=== PATIENT | male | born 1950 | race Caucasian/White ===

== ENCOUNTER 2017-06-22 08:46 | Outpatient (CLI) | payer MEDICARE, OTHER ==
[2017-06-22 11:23] LABS: CHOL/HDL RATIO 2.4 (<5.0); CHOLESTEROL 138 mg/dL; HDL CHOLESTEROL 57 mg/dL; LDL CHOLESTEROL,CALCULATED 57 mg/dL; VLDL CHOLESTEROL 24 mg/dL
== END 2017-06-22 08:47 | disposition home or self-care (01) ==
LOC: LAB.F 08:46
PROVIDERS: ATTEND Internal Medicine
DX: E78.5 Hyperlipidemia, unspecified (principal)
CPT/HCPCS: 36415; 80061; 83721

== ENCOUNTER 2021-01-21 21:08 | Inpatient (IN) | payer MEDICARE, OTHER ==
[2021-01-21] MEDS ORDERED: diltiaZEM INJ 5 MG/ML VIAL IVP STA ×2 (21:42→22:48)
--- NOTE | 2021-01-21 21:42 | ED Physician Documentation ---
History of Present Illness - Stated complaint Stated Complaint: HIGH HR - Chief complaint Chief Complaint: Cardiac - History obtained from History obtained from: Patient - History of Present Illness Timing: Enter time (20:00), Today Pain level max: 0 Pain level now: 0 Quality: rapid, irregular Improved by: no ameliorating factors Worsened by: no exacerbating factors - Additonal information Additional information: c/o sudden onset rapid, irregular palpitations at 8 PM while at home at rest. 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 He has never been diagnosed with atrial fibrillation. Denies chest pain, denies dyspnea. Review of Systems Constitutional: reports: Reviewed and negative Eyes: reports: Reviewed and negative Ears: reports: Reviewed and negative Nose: reports: Reviewed and negative Throat: reports: Reviewed and negative Cardiac: reports: Palpitations. denies: Chest pain / pressure, Pedal edema, Calf pain Respiratory: reports: Reviewed and negative GI: reports: Reviewed and negative Skin: reports: Reviewed and negative Musculoskeletal: reports: Reviewed and negative Neurologic: denies: Generalized weakness PD PAST MEDICAL HISTORY - Past Medical History Past Medical History: Yes Cardiovascular: High cholesterol Endocrine/Autoimmune: None GI: None : None HEENT: None Psych: None Musculoskeletal: None Derm: None - Past Surgical History Past Surgical History: Yes - Present Medications Home Medications: Ambulatory Orders Medication Instructions Recorded Confirmed No Known Home Medications 02/18/15 02/18/15 - Allergies Allergies/Adverse Reactions: Allergies Allergy/AdvReac Type Severity Reaction Status Date / Time No Known Drug Allergies Allergy Verified 01/21/21 21:11 - Social History Does the pt smoke?: No Smoking Status: Never smoker Does the pt drink ETOH?: Yes Does the pt have substance abuse?: No - Immunizations Immunizations are current?: Yes - POLST Patient has POLST: Yes PD ED PE NORMAL - Vitals Vital signs reviewed: Yes - General General: Alert and oriented X 3, No acute distress, Well developed/nourished - HEENT HEENT: Moist mucous membranes - Neck Neck: Supple, no meningeal sign - Respiratory Respiratory: No respiratory distress, Clear bilaterally - Abdomen Abdomen: Soft, Non tender - Derm Derm: Normal color, Warm and dry - Extremities Extremities: No edema PD ED PE EXPANDED - Cardiac Cardiac: Tachy, Irregularly irregular Results - Vitals Vitals: Vital Signs - 24 hr 01/21/21 01/21/21 01/21/21 21:11 21:34 21:54 Temperature 36.5 C Heart Rate 130 H 153 H 162 H Respiratory 20 18 18 Rate Blood Pressure 113/84 H 116/90 H 121/72 O2 Saturation 96 96 94 01/21/21 01/21/21 01/21/21 22:00 22:05 22:10 Temperature Heart Rate 154 H Respiratory Rate Blood Pressure 107/66 111/73 108/71 O2 Saturation 01/21/21 01/21/21 01/21/21 22:15 22:30 22:36 Temperature Heart Rate 113 H 120 H Respiratory 103 H 19 16 Rate Blood Pressure 105/82 H 114/84 H 114/84 H O2 Saturation 94 94 01/21/21 01/21/21 01/21/21 22:55 23:00 23:05 Temperature Heart Rate 121 H 108 H 113 H Respiratory 15 15 14 Rate Blood Pressure 125/95 H 142/99 H 104/77 O2 Saturation 96 95 95 01/21/21 01/21/21 01/21/21 23:13 23:21 23:23 Temperature Heart Rate 103 H 119 H 115 H Respiratory 21 16 16 Rate Blood Pressure 137/99 H 128/91 H 100/74 O2 Saturation 95 95 95 01/21/21 01/21/21 01/21/21 23:30 23:44 23:51 Temperature Heart Rate 132 H 133 H 115 H Respiratory 16 15 12 Rate Blood Pressure 98/75 98/61 98/59 L O2 Saturation 92 95 98 01/22/21 01/22/21 00:00 00:18 Temperature Heart Rate 133 H 126 H Respiratory 15 15 Rate Blood Pressure 101/79 116/76 O2 Saturation 95 96 Oxygen O2 Source [With Activity] Room air O2 Source Room air - EKG (time done) No standard instances Rate: Rate (enter#) (129) Rhythm: Atrial fibrillation [place]: Normal QRS: Normal Ischemia: Normal ST segments - Labs Labs: Laboratory Tests 01/21/21 01/21/21 01/21/21 10:35 10:35 10:35 WBC 7.8 RBC 5.56 Hgb 16.1 Hct 48.0 MCV 86.3 MCH 29.0 MCHC 33.5 RDW 14.1 Plt Count 237 MPV 9.7 Neut # (Auto) 5.3 Lymph # (Auto) 1.3 L Tucker # (Auto) 0.8 Eos # (Auto) 0.2 Baso # (Auto) 0.1 Absolute Nucleated RBC 0.00 Nucleated RBC % 0.0 Sodium 137 Potassium 3.4 L Chloride 98 L Carbon Dioxide 27 Anion Gap 12.0 BUN 27 H Creatinine 1.0 Estimated GFR (MDRD) 73 L Glucose 86 Calcium 9.5 Total Bilirubin 0.7 AST 28 ALT 29 Alkaline Phosphatase 76 Troponin I High Sens 4.0 Total Protein 7.5 Albumin 4.4 Globulin 3.1 Albumin/Globulin Ratio 1.4 Lipase 32 - Rads (name of study) chest xray Radiology: Prelim report reviewed, See rad report Procedures - Procedural sedation Sedation prep: Informed consent, Time out completed, Last meal (18:30), PE performed, ASA 1 - healthy Sedation Medications: propofol Mallampati classification: I Patient status during sedation: Responds to verbal, Vitals remained stable, Maintained airway, Recovered uneventfully Sedation recovery: Recovered uneventfully, Back to baseline Time in sedation (Minutes): 20 - Cardioversion 1 Indication: Tachyarrhythmia Risks, benefits, alternatives explained to: Pt Prep: IV, O2, monitoring manager, Pulse ox, Airway equip Meds: Morphine CS via: Pads, Anterolateral Sync: Biphasic, 100j Post cardioversion rhythm: Other (initially NSR on monitor, reverted back to JASMEET after approximately 20-30 seconds) Performed by: ED MD 2 Indication: Tachyarrhythmia CS via: Pads, Anterolateral Sync: Biphasic, 200j Post cardioversion rhythm: Other (initially NSR on monitor, reverted back to JASMEET within 10-15 seconds) Performed by: ED PD MEDICAL DECISION MAKING - ED course Complexity details: reviewed results, re-evaluated patient, considered d ifferential, d/w patient ED course: presents with new-onset JASMEET. Given two doses of IV cardizem (20 mg , 15 mg). Rate improved to upper 90s/100s with these doses but he remained in atrial fibrillation, with gradually increasing rate as the doses wore off. We discussed further options and he is agreeable to electrocardioversion. As documented above, two attempts resulted in brief periods of NSR that rapidly reverted to atrial fibrillation. I discussed the case with Dr. Garcia (behavioral intervention specialist cardiology for [facility]). He recommends IV cardizem drip to be titrated to rate control (or else beta jay), anticoagulation with warfarin or else NOAC, and admission, with goal of rate control and conversion to PO rate-controlling medication, continuation of oral anticoagulant. Patient agreeable to this plan. D/W Dr. Naidu, accepts to hospitalist service. Departure - Departure Disposition: [facility] DC/Xfer Clinical Impression: Rapid atrial fibrillation Condition: Stable Discharge Date/Time: 01/22/21 01:41
--- NOTE | 2021-01-21 22:15 | XRAY Report ---
PROCEDURE: Chest 1 View X-Ray INDICATIONS: Chest pain COMMENTS: pt c/o heart racing, hx new onset AFIB, no chest pain, no SOA PRIORS: none TECHNIQUE: One view of the chest was acquired. COMPARISON: None FINDINGS: Surgical changes and devices: None. Lungs and pleura: No pleural effusions or pneumothorax. Lungs are clear. Mediastinum: Mediastinal contours appear normal. Heart size is normal. Bones and chest wall: No suspicious bony lesions. Overlying soft tissues appear unremarkable. IMPRESSION: No acute cardiopulmonary abnormality. Reviewed by: Osman Hinojosa on 01/21/2021 10:13 PM [facility] Approved by: Osman Hinojosa on 01/21/2021 10:13 PM [facility] Station ID: [id number]
[2021-01-21 22:41] LABS: BASOPHILS # (AUTO) 0.1 10^3/uL (0.0-0.1); BASOPHILS % (AUTO) 0.9 %; EOSINOPHILS # (AUTO) 0.2 10^3/uL (0.0-0.7); EOSINOPHILS % (AUTO) 2.7 %; HGB - HEMOGLOBIN 16.1 g/dL (14.0-18.0); LYMPHOCYTES # (AUTO) 1.3 10^3/uL (1.5-3.5); LYMPHOCYTES % (AUTO) 17.3 %; MEAN CORPUSCULAR HGB CONC 33.5 g/dL (32.0-36.0); MEAN CORPUSCULAR VOLUME 86.3 fL (80.0-94.0); MEAN PLATELET VOLUME 9.7 fL (7.4-11.4); MONOCYTES # (AUTO) 0.8 10^3/uL (0.0-1.0); MONOCYTES % (AUTO) 10.3 %; NEUTROPHILS # (AUTO) 5.3 10^3/uL (1.5-6.6); NEUTROPHILS % (AUTO) 68.4 %; PLT - PLATELET COUNT 237 10^3/uL (130-450); RED BLOOD COUNT 5.56 10^6/uL (4.70-6.10); RED CELL DISTRIBUTION WIDTH 14.1 % (12.0-15.0); WHITE BLOOD COUNT 7.8 x10^3/uL (4.8-10.8)
[2021-01-21 23:02] LABS: ALBUMIN 4.4 g/dL (3.2-5.5); ALBUMIN/GLOBULIN RATIO 1.4 (1.0-2.2); BILIRUBIN,TOTAL 0.7 mg/dL (0.2-1.0); CALCIUM 9.5 mg/dL (8.5-10.3); POTASSIUM 3.4 mmol/L (3.5-5.0); TOTAL PROTEIN 7.5 g/dL (6.7-8.2)
[2021-01-21] MEDS ORDERED: MORPHINE 2 MG/ML CARPUJECT IVP STA (23:31)
[2021-01-21] MEDS ORDERED: PROPOFOL 200 MG/20 ML VIAL IVP STA (23:31)
[2021-01-21] MEDS ORDERED: SODIUM CHLORIDE 0.9% 1,000 ML IV STA (23:40)
[2021-01-22] MEDS ORDERED: diltiaZEM INJ 125 MG in DEXTROSE 5% 100 ML IV STA (00:25)
[2021-01-22] MEDS ORDERED: POTASSIUM CHLORIDE 20 MEQ TABLET PO STA (00:26)
[2021-01-22] MEDS ORDERED: APIXABAN 5 MG TABLET PO STA (00:31)
[2021-01-22] MEDS ORDERED: diltiaZEM INJ 5 MG/ML VIAL ONE (00:38)
[2021-01-22] MEDS ORDERED: ONDANSETRON 4 MG/2 ML VIAL IVP PRN (00:44)
[2021-01-22] MEDS ORDERED: ACETAMINOPHEN 325 MG TABLET PO PRN (00:44)
[2021-01-22] MEDS ORDERED: SODIUM CHLORIDE FLUSH 0.9% 10 ML SYRINGE IVP PRN (00:44)
--- NOTE | 2021-01-22 00:56 | HISTORY & PHYSICAL EXAMINATION ---
Chief Complaint - Chief Complaint Chief Complaint: irregular heart rhythm History of Present Illness - Admitted From Admitted From:: [facility] ED - History Obtained From Records Reviewed: yes History obtained from: patient - History of Present Illness HPI Comment/Other: Patient is 70-year-old male with medical history significant for hyperlipidemia, CVA with no residual deficits, history of prostate cancer status post radical prostatectomy who presented to the ED with complaint of an irregular and fast heart rate. This happened around 8 PM today while he was watching TV. He felt a bit dizzy when he stood up. He noted that his heart rate was in the 150s at home. He denied chest pain, dyspnea, abdominal pain, nausea, vomiting, fever or chills. He has history of ventricular ectopy for which he underwent extensive work-up 45 years ago. This included a stress echo and a cardiac MRI which were all unremarkable. He reports feeling an episode of arrhythmia about a month or 2 ago which resolved shortly after starting. In the emergency room he was noted to be in atrial fibrillation with rapid ventricular rhythm. Heart rate as high as 150s. He was given 2 doses of diltiazem which slowed down his heart rate but then he went back to rapid ventricular rhythm shortly after. Cardioversion was attempted twice. Each time he was successfully converted to sinus rhythm but then went back into A. fib with RVR. As a result he was presented for admission for further management. History - Past Medical History Cardiovascular: reports: High cholesterol Neuro: reports: CVA (no residual deficit) Endocrine/Autoimmune: reports: None GI: reports: None : reports: Other (Prostate cancer s/p radical prostatectomy) HEENT: reports: None Psych: reports: None Musculoskeletal: reports: None Derm: reports: None MRSA Hx?: No - Past Surgical History Ortho: reports: Knee replacement (right. 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 He is independent of activities of daily living. 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 He drinks 1 glass of wine nightly. He does not use any recreational substances. - POLST Patient has POLST: Yes POLST Status: Full Code Meds/Allgy - Home Medications Home Medications: Ambulatory Orders Medication Instructions Recorded Confirmed No Known Home Medications 02/18/15 02/18/15 - Allergies Allergies/Adverse Reactions: Allergies Allergy/AdvReac Type Severity Reaction Status Date / Time No Known Drug Allergies Allergy Verified 01/21/21 21:11 Review of Systems - Constitutional Constitutional: denies: Fatigue, Fever, Chills, Weakness - Eyes Eyes: denies: Pain - Ears, Nose & Throat Ears, Nose & Throat: denies: Ear pain, Sore throat - Cardiovascular Cariovascular: reports: Irregular heart rate, Lightheadedness. denies: Chest pain, Edema - Respiratory Respiratory: denies: Cough, Wheezing, SOB at rest, SOB with exertion - Gastrointestinal Gastrointestinal: denies: Abdominal pain, Abdominal distention, Nausea, Vomiting - Genitourinary Genitourinary: denies: Dysuria, Frequency, Hematuria - Musculoskeletal Musculoskeletal: denies: Muscle pain, Back pain, Muscle aches - Integumentary Integumentary: denies: Rash, Pruritis - Neurological Neurological: denies: General weakness, Focal weakness - Psychiatric Psychiatric: denies: Depression, Anxiety - Endocrine Endocrine: denies: Polyuria, Polydypsia - Hematologic/Lymphatic Hematologic/Lymphatic: denies: Anemia, Bruising Prior Level of Functionality: He is independent of activities of daily living. Exam - Vital Signs Vital Signs: Vital Signs x48h Temp Pulse Resp BP Pulse Ox 01/22/21 00:46 132 H 18 125/108 H 96 01/22/21 00:18 126 H 15 116/76 96 01/22/21 00:00 133 H 15 101/79 95 01/21/21 23:51 115 H 12 98/59 L 98 01/21/21 23:44 133 H 15 98/61 95 01/21/21 23:30 132 H 16 98/75 92 01/21/21 23:23 115 H 16 100/74 95 01/21/21 23:21 119 H 16 128/91 H 95 01/21/21 23:13 103 H 21 137/99 H 95 01/21/21 23:05 113 H 14 104/77 95 01/21/21 23:00 108 H 15 142/99 H 95 01/21/21 22:55 121 H 15 125/95 H 96 01/21/21 22:36 120 H 16 114/84 H 94 01/21/21 22:30 113 H 19 114/84 H 94 01/21/21 22:15 103 H 105/82 H 01/21/21 22:10 108/71 01/21/21 22:05 111/73 01/21/21 22:00 154 H 107/66 01/21/21 21:54 162 H 18 121/72 94 01/21/21 21:34 153 H 18 116/90 H 96 01/21/21 21:11 36.5 C 130 H 20 113/84 H 96 - Physical Exam General Appearance: positive: No acute distress, Alert Eyes Bilateral: positive: PERRL, EOMI ENT: positive: No signs of dehydration Neck: positive: No JVD, Trachea midline Respiratory: positive: Chest non-tender, No respiratory distress, Breath sounds nml. negative: Wheezes, Rales, Rhonchi Cardiovascular: positive: No murmur, Irregularly irregular, Tachycardia Abdomen: positive: Non-tender, No organomegaly, Nml bowel sounds, No distention. negative: Guarding, Rebound Skin: positive: Color nml, No rash, Warm, Dry Extremities: positive: Non-tender, Full ROM, Nml appearance, No pedal edema Neurologic/Psychiatric: positive: Oriented x3, Mood/affect nml Conclusion/Plan - Problem List (1) Atrial fibrillation with RVR Conclusion/Plan: New onset. Etiology undetermined. Initial troponin was 4.0. Will trend X2 more Patient received 2 doses of diltiazem without success 2 attempt of cardioversion resulted in conversion to sinus rhythm which did not last long Diltiazem drip initiated. Will titrate to effect Patient was started on Eliquis 5mg po bid after discussion with Dr Garcia (methods analyst data processing) at [facility] by Dr Etienne Metoprolol succinate 50mg po daily ordered. 2D echo ordered for the morning. (2) Hyperlipidemia Conclusion/Plan: Will resume patient's atorvastatin once verified - Lab Results Fish Bones: 01/21/21 10:35 01/21/21 10:35 Core Measures - Anticipated LOS I expect patient to be DC'd or transferred within 96 hours.: Yes - DVT/VTE - Prophylaxis VTE/DVT Device ordered at admit?: No VTE/DVT Prophylaxis med ordered at admit?: Yes
[2021-01-22] MEDS ORDERED: diltiaZEM INJ 125 MG in DEXTROSE 5% 100 ML IV SCH (01:00)
[2021-01-22] MEDS: SODIUM CHLORIDE FLUSH 0.9% 10 ML SYRINGE IVP SCH ×2 (01:53→12:09)
[2021-01-22 02:05] LABS: B. PARAPERTUSSIS- RESP PCR PAN NOT DETECTED; B. PERTUSSIS- RESP PCR PANEL NOT DETECTED; C. PNEUMONIAE- RESP PCR PANEL NOT DETECTED; CORONAVIRUS 229E-RESP PCR NOT DETECTED; CORONAVIRUS HKU1-RESP PCR NOT DETECTED; CORONAVIRUS NL63-RESP PCR NOT DETECTED; CORONAVIRUS OC43-RESP PCR NOT DETECTED; HUMAN METAPNEUMOVIRUS NOT DETECTED; INFLUENZA A- RESP PCR PANEL NOT DETECTED; INFLUENZA B - RESP PCR PANEL NOT DETECTED; M. PNEUMONIAE- RESP PCR PANEL NOT DETECTED; PARAINFLUENZA VIRUS 1 NOT DETECTED; PARAINFLUENZA VIRUS 2 NOT DETECTED; PARAINFLUENZA VIRUS 3 NOT DETECTED; PARAINFLUENZA VIRUS 4 NOT DETECTED; RHINOVIRUS/ENTEROVIRUS NOT DETECTED; RSV- RESP PCR PANEL NOT DETECTED; SARS-CoV-2 -RESP PCR PANEL NOT DETECTED
[2021-01-22] MEDS ORDERED: METOPROLOL SUCCINATE 50 MG TABLET PO ONE (04:29)
[2021-01-22 05:18] LABS: CALCIUM, IONIZED 1.13 mmol/L (1.15-1.33); VBG PH 7.458 (7.31-7.41)
[2021-01-22 05:22] LABS: BASOPHILS # (AUTO) 0.1 10^3/uL (0.0-0.1); BASOPHILS % (AUTO) 0.8 %; EOSINOPHILS # (AUTO) 0.2 10^3/uL (0.0-0.7); EOSINOPHILS % (AUTO) 2.8 %; HCT - HEMATOCRIT 46.7 % (42.0-52.0); HGB - HEMOGLOBIN 15.7 g/dL (14.0-18.0); LYMPHOCYTES # (AUTO) 1.2 10^3/uL (1.5-3.5); LYMPHOCYTES % (AUTO) 15.3 %; MEAN CORPUSCULAR HGB CONC 33.6 g/dL (32.0-36.0); MEAN CORPUSCULAR VOLUME 86.3 fL (80.0-94.0); MEAN PLATELET VOLUME 9.3 fL (7.4-11.4); MONOCYTES # (AUTO) 0.7 10^3/uL (0.0-1.0); MONOCYTES % (AUTO) 9.5 %; NEUTROPHILS # (AUTO) 5.6 10^3/uL (1.5-6.6); NEUTROPHILS % (AUTO) 71.2 %; PLT - PLATELET COUNT 226 10^3/uL (130-450); RED BLOOD COUNT 5.41 10^6/uL (4.70-6.10); RED CELL DISTRIBUTION WIDTH 14.1 % (12.0-15.0); WHITE BLOOD COUNT 7.8 x10^3/uL (4.8-10.8)
[2021-01-22 05:30] LABS: CALCIUM 8.9 mg/dL (8.5-10.3); CREATININE 0.9 mg/dL (0.6-1.2); MAGNESIUM 2.1 mg/dL (1.7-2.8); PHOSPHORUS 3.4 mg/dL (2.5-4.6); POTASSIUM 3.8 mmol/L (3.5-5.0)
[2021-01-22] MEDS ORDERED: METOPROLOL SUCCINATE 50 MG TABLET PO SCH (09:00)
[2021-01-22] MEDS ORDERED: APIXABAN 5 MG TABLET PO SCH (09:00)
--- NOTE | 2021-01-22 11:34 | Discharge Plan ---
Discharge Plan Problem Reviewed?: Yes Disposition: Home, Self Care Condition: Stable Prescriptions: Apixaban [Eliquis] 5 mg PO BID #60 tablet Amiodarone [Pacerone] 200 mg PO DAILY #30 tablet Diet: Regular Activity Restrictions: Activity as Tolerated Shower Restrictions: No Driving Restrictions: No Health Concerns: You presented to our emergency room with an irregular and fast heart rate. You have shared with us that you have a history of PACs and PVCs which predisposes you to a high risk of atrial fibrillation. You also shared with us that you have a history of a previous stroke about 5 years ago. You required diltiazem IV push without cardioversion. You were then placed on a diltiazem drip after being electrically cardioverted twice. You converted to sinus rhythm. Plan of Treatment: Your TSH is high at 7.94 which indicates you may have subclinical hypothyroidism. You are not having a heart attack. Your cardiac enzymes did rise but we think it was in relation to demand stress caused by the fast heart rate. Troponin #1 was 4.0. Troponin #2 was 21.3. You had a potassium of 3.4 on admission and it was 3.8 at discharge. Echocardiogram was pending at the time of discharge. It had been done but the final report was not available. Care Goals: To remain in sinus rhythm. I have already called your primary care provider, Dr. Barbour, and he knows to see you and to refer you to cardiology for an opinion. You would like to be educated about the need for anticoagulation in the face of infrequent atrial fibrillation. I have sent you home with UpToDate information regarding that. In the meantime, we will be sending you home with Eliquis and amiodarone until y ou see Dr. Barbour and a social work instructor. 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 No Smoking: If you smoke, Please STOP! Call for help. Follow-up with: Jeremiah Barbour MD [Physician No Access] -
--- NOTE | 2021-01-22 11:44 | PHARMACY PROGRESS NOTE ---
- Best Possible Medication History Admit Date and Time: 01/22/21 0044 Processed by: Pharmacy Medication History completed: Yes Patient Interview: Completed Secondary Source(s): Insurance records As the person ultimately responsible for medication therapy, providers are able to order a medication from an existing home medication list in [facility] via the "Reconcile Routine" prior to Confirmation of that medication by residential direct support professional. Such practice is discouraged except when the physician, in their clinical judgment, deems that a medical need exists for a medication without regard to previous use.
[2021-01-22 12:14] VITALS: BP 103/66
[2021-01-22] MEDS ORDERED: AMIODARONE 200 MG TABLET PO SCH (13:00)
--- NOTE | 2021-01-22 14:08 | DISCHARGE SUMMARY ---
"Discharge Summary Admit Date: 01/21/21 Discharge Date: 01/22/21 Discharging Provider: Adry Campo MD Primary Care Provider: Jeremiah Barbour MD Code Status: Attempt Resuscitation Condition at Discharge: Stable Discharge Disposition: 01 Home, Self Care - DIAGNOSES Discharge Diagnoses with Status of Each Condition: 1. Paroxysmal atrial fibrillation 2. History of PVCs/PACs 3. History of stroke - HPI History of Present Illness: Patient is 70-year-old male with medical history significant for hyperlipidemia, CVA with no residual deficits, history of prostate cancer status post radical prostatectomy who presented to the ED with complaint of an irregular and fast heart rate. This happened around 8 PM today while he was watching TV. He felt a bit dizzy when he stood up. He noted that his heart rate was in the 150s at home. He denied chest pain, dyspnea, abdominal pain, nausea, vomiting, fever or chills. He has history of ventricular ectopy for which he underwent extensive work-up 45 years ago. This included a stress echo and a cardiac MRI which were all unremarkable. He reports feeling an episode of arrhythmia about a month or 2 ago which resolved shortly after starting. In the emergency room he was noted to be in atrial fibrillation with rapid ventricular rhythm. Heart rate as high as 150s. He was given 2 doses of diltiazem which slowed down his heart rate but then he went back to rapid ventricular rhythm shortly after. Cardioversion was attempted twice. Each time he was successfully converted to sinus rhythm but then went back into A. fib with RVR. As a result he was presented for admission for further management. - Past Medical History Cardiovascular: reports: High cholesterol Neuro: reports: CVA (no residual deficit) Endocrine/Autoimmune: reports: None GI: reports: None : reports: Other (Prostate cancer s/p radical prostatectomy) HEENT: reports: None Psych: reports: None Musculoskeletal: reports: None Derm: reports: None MRSA Hx?: No - Past Surgical History Ortho: reports: Knee replacement (right. 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 Echocardiogram. This is a preliminary finding. Final report must be reviewed. Left ventricular wall thickness normal. 60 to 65% ejection fraction without regional wall motion abnormalities. Right ventricle normal size and function. Moderate right atrial enlargement. Left atrial volume index normal. No valvular heart disease. 2. TSH 7.94. Troponin 4.0>21.3>12.4. 3. Chest x-ray without acute cardiopulmonary abnormality. - HOSPITAL COURSE Hospital Course: The patient converted to sinus rhythm around 4 AM. Troponins were trended and negative. He has subclinical hypothyroidism. He was transitioned to amiodarone and Eliquis. I have given him the chapter on paroxysmal atrial fibrillation in the management from up-to-date. I have already spoken to his primary care provider, Dr. Barbour, so that he can be referred to cardiology. Patient is very interested in discussing the management since he really would like choose to be on anticoagulation. He also is worried about what to do with anticoagul ation management around the time of a planned hip surgery in April 07, 2021. He is discharged in stable condition. Temperature is 36.8. Heart rate is 81. Blood pressure 103/66. Respiration 22. 94% on room air. He is a 5 foot, 10 inch white male. Alert, oriented. No focal deficits. Walking in the room without assist. Lungs are clear. Regular rate and rhythm. Abdomen benign. I did discuss the case with his primary care provider, Dr. Barbour. Dr. Barbour's office will be calling the patient to make a follow-up appointment and for the referral to cardiology. - ALLERGIES Allergies/Adverse Reactions: Allergies Allergy/AdvReac Type Severity Reaction Status Date / Time No Known Drug Allergies Allergy Verified 01/21/21 21:11 - MEDICATIONS Home Medications: Ambulatory Orders Medication Instructions Recorded Confirmed Amiodarone [Pacerone] 200 mg PO DAILY #30 tablet 01/22/21 Apixaban [Eliquis] 5 mg PO BID #60 tablet 01/22/21 Aspirin Chewable [[facility] Singh 81 mg PO DAILY 01/22/21 01/22/21 Aspirin] Atorvastatin Calcium 40 mg PO DAILY 01/22/21 01/22/21 Biotin 1 cap PO DAILY 01/22/21 01/22/21 Niacinamide 1,000 mg PO DAILY 01/22/21 01/22/21 - LABS Result Diagrams: 01/22/21 05:03 01/22/21 05:03"
== END 2021-01-22 14:10 | disposition home or self-care (01) | DRG 310 ==
LOC: ED 21:08 → ICU 01-22 00:44
PROVIDERS: ADMIT Internal Medicine; ATTEND Specialist
DX: I48.91 Unspecified atrial fibrillation (principal); Z20.822 Contact with and (suspected) exposure to COVID-19; Z86.73 Personal history of transient ischemic attack (TIA), and cerebral infarction without residual deficits; E78.5 Hyperlipidemia, unspecified; Z85.46 Personal history of malignant neoplasm of prostate; Z90.79 Acquired absence of other genital organ(s); Z87.891 Personal history of nicotine dependence; E03.8 Other specified hypothyroidism
CPT/HCPCS: 36415; 71045; 80048; 80053; 82330; 83690; 83735; 84100; 84443; 84484; 85025; 87150; 87631; 92960; 93005; 93306; 96361; 96374; 96375; 96376; 99152; 99284; 99285; A9270; 0202U

== ENCOUNTER 2021-04-24 14:56 | Outpatient (CLI) | payer MEDICARE, OTHER ==
[2021-04-24 15:18] LABS: BASOPHILS # (AUTO) 0.1 10^3/uL (0.0-0.1); BASOPHILS % (AUTO) 0.7 %; EOSINOPHILS # (AUTO) 0.2 10^3/uL (0.0-0.7); EOSINOPHILS % (AUTO) 1.9 %; HCT - HEMATOCRIT 31.1 % (42.0-52.0); HGB - HEMOGLOBIN 10.1 g/dL (14.0-18.0); LYMPHOCYTES # (AUTO) 0.9 10^3/uL (1.5-3.5); LYMPHOCYTES % (AUTO) 8.5 %; MEAN CORPUSCULAR HEMOGLOBIN 28.5 pg (27.0-31.0); MEAN CORPUSCULAR HGB CONC 32.5 g/dL (32.0-36.0); MEAN CORPUSCULAR VOLUME 87.9 fL (80.0-94.0); MEAN PLATELET VOLUME 8.7 fL (7.4-11.4); MONOCYTES # (AUTO) 0.9 10^3/uL (0.0-1.0); MONOCYTES % (AUTO) 8.5 %; NEUTROPHILS # (AUTO) 8.2 10^3/uL (1.5-6.6); NEUTROPHILS % (AUTO) 79.9 %; PLT - PLATELET COUNT 431 10^3/uL (130-450); RED BLOOD COUNT 3.54 10^6/uL (4.70-6.10); RED CELL DISTRIBUTION WIDTH 14.1 % (12.0-15.0); WHITE BLOOD COUNT 10.3 x10^3/uL (4.8-10.8)
[2021-04-24] MEDS ORDERED: IOVERSOL 320 100 ML VIAL IVP ONE ×2 (15:57→18:24)
--- NOTE | 2021-04-24 17:06 | CT Report ---
PROCEDURE: LOWER EXTREMITY W - LT INDICATIONS: LEFT HIP HEMATOMA TECHNIQUE: After administration of contrast 3 mm axial sections acquired of the left hip, with coronal and sagit jose alfredo reformats. For radiation dose reduction, the following was used: automated exposure control, ad justment of mA and/or kV according to patient size. CONTRAST: IV CONTRAST: Optiray 320 ml: 100 PO CONTRAST: *NO PO CONTRAST COMPARISON: None. FINDINGS: BONES/JOINT: No acute, displaced fracture or dislocation. A hip arthroplasty is seen in situ without evidence of compromise. The femoral head component is seated within the acetabular component. The sac roiliac joint is patent. No widening of the pubic sepsis. SOFT TISSUES: A periprosthetic hematoma is seen along the posterior lateral aspect (9-59), measuring 9.4 x 14.1 x 10.7 cm. Reticulated soft tissue density in the subcutaneous fat, compatible with edema. Partially imaged sigmoid diverticulosis. IMPRESSION: 1.Large periprosthetic hematomas detailed above. Reviewed by: Steve Jaeger MD on 04/24/2021 5:04 PM PST Approved by: Steve Jaeger MD on 04/24/2021 5:04 PM PST Station ID: [id number]
== END 2021-04-24 14:57 | disposition home or self-care (01) ==
LOC: DI 14:56
PROVIDERS: ATTEND Orthopaedic Surgery
DX: Z47.1 Aftercare following joint replacement surgery (principal); R20.0 Anesthesia of skin
CPT/HCPCS: 36415; 73701; 85025; Q9967

== ENCOUNTER 2021-04-29 15:41 | Outpatient (CLI) | payer MEDICARE, OTHER ==
--- NOTE | 2021-04-30 17:03 | MRI Report ---
PROCEDURE: Lumbar Spine W/O INDICATIONS: NUEROPATHY, SACRAL PLEXUS TECHNIQUE: Noncontrast sagittal T1 spin echo and T2 fast echo, sagittal STIR, axial T1 and T2 fast spin echo thr ough the lumbar spine. In cases with scoliosis, additional coronal T2 fast spin echo may be performe d. COMPARISON: None. FINDINGS: Image quality: Excellent. Alignment and Curvature: There is trace leftward curvature with apex at L4. Bone Marrow: Marrow is of normal overall signal. Minimal reactive endplate changes are present at L 4-5. No acute vertebral body compression fractures. Spinal Cord: Conus medullaris terminates at the L2 level. Visualized cord demonstrates normal signa l and size. Paraspinous Soft Tissues: No paravertebral masses. Discs: Moderate to severe desiccation is present throughout the lumbar spine most severe at L1-L2. L1-L2: Mild disc bulge without spinal stenosis. [id number] bilateral foraminal narrowing wit h facet and ligamentum flavum hypertrophy. L2-L3: Mild disc bulge with minimal canal narrowing. Moderate bilateral foraminal narrowing, left greater than right with facet and ligamentum flavum hypertrophy. Minimal epidural lipomatosis is pres ent. L3-L4: Mild disc bulge with mild to moderate spinal stenosis. Severe bilateral foraminal narrowing with facet and ligamentum flavum hypertrophy as well as minimal epidural lipomatosis. L4-L5: Mild disc bulge without spinal stenosis. Severe right and moderate to severe left foraminal narrowing with slight appearance of nerve root effacement of the exiting right L4 nerve roots. Facet and ligamentum flavum hypertrophy as well as minimal epidural lipomatosis are present. L5-S1: Mild disc bulge without spinal stenosis. Moderate bilateral foraminal narrowing with facet h ypertrophy. IMPRESSION: Multilevel degenerative changes. Multilevel foraminal narrowing most severe at L3-4, L4-5 secondary to facet/ligamentum flavum arthrop athy. Mild to moderate spinal stenosis most notable at L3-4 secondary to disc bulge with contributing effec t of facet/ligamentum flavum arthropathy as well as epidural lipomatosis. Reviewed by: Victoria Kearns MD on 04/30/2021 5:01 PM PDT Approved by: Victoria Kearns MD on 04/30/2021 5:01 PM PDT Station ID: [id number]
== END 2021-04-29 15:42 | disposition home or self-care (01) ==
LOC: DI 15:41
PROVIDERS: ATTEND Orthopaedic Surgery
DX: M47.816 Spondylosis without myelopathy or radiculopathy, lumbar region (principal); M51.36 Other intervertebral disc degeneration, lumbar region; M48.061 Spinal stenosis, lumbar region without neurogenic claudication; M47.817 Spondylosis without myelopathy or radiculopathy, lumbosacral region; E88.2 Lipomatosis, not elsewhere classified

== ENCOUNTER 2022-08-22 09:24 | Day surgery (SDC) | payer MEDICARE, OTHER ==
[2022-08-22] MEDS ORDERED: LACTATED RINGERS 1,000 ML IV ONE ×2 (09:37→11:11)
[2022-08-22] MEDS ORDERED: PROPOFOL 500 MG/50 ML 500 MG/50 ML VIAL ONE (10:12)
--- NOTE | 2022-08-22 10:13 | ANESTHESIA ---
Pre-Anesthesia VS, & Labs - Diagnosis hx colon polyps - Procedure colonoscopy Vital Signs: Temp Pulse Resp BP Pulse Ox O2 Flow Rate 36.5 C 72 14 128/87 H 94 08/22/22 09:30 08/22/22 09:30 08/22/22 09:30 08/22/22 09:30 08/22/22 09:30 Height: 5 ft 10 in Weight (kg): 94.8 kg Body Mass Index: 29.9 BMI Classification: Overweight - NPO >8 hours Last Fluid Intake: am prep - Lab Results Lab results reviewed: Yes Home Medications and Allergies Atorvastatin Calcium 40 mg PO DAILY 01/22/21 Niacinamide 1,000 mg PO DAILY 01/22/21 Rivaroxaban [Xarelto] 20 mg PO QDDINNER 02/07/21 Magnesium Glycinate See Rx Instructions .ROUTE .COMPLEX 03/04/22 Allergies/Adverse Reactions: Allergies Allergy/AdvReac Type Severity Reaction Status Date / Time No Known Drug Allergies Allergy Verified 08/21/22 12:41 Anes History & Medical History - Anesthetic History Anesthesia Complications: reports: No previous complications Family history of Anesthesia Complications: Denies Family history of Malignant Hyperthermia: Denies - Medical History Cardiovascular: reports: High cholesterol, Atrial fibrillation (cardioversion x2 2019, resolved) Pulmonary: reports: None Gastrointestinal: reports: None Urinary: reports: None, Other Neuro: reports: CVA (2016, no residual) Musculoskeletal: reports: Osteoarthritis Endocrine/Autoimmune: reports: None Skin: reports: Other Smoking Status: Never smoker - Surgical History General: reports: Colonoscopy Urologic: reports: Prostatic surgery Gynecologic: reports: Other (Radical Prostatectomy) Orthopedic: reports: Hip replacement Dermatologic: reports: Skin cancer surgery Exam General: Alert, Oriented x3, Cooperative Dental: WNL Mouth Openin Fingerbreadth Neck Mobility: Normal Mallampati classification: II Thyromental Distance: 4-6 cm Respiratory: Lungs clear, Normal breath sounds, No respiratory distress Cardiovascular: Regular rate Neurological: Normal speech Cognitive Status: Within normal limits Plan Anesthesia Type: Total IV Consent for Procedure(s) Verified and Reviewed: Yes Code Status: Attempt Resuscitation ASA classification: 2-Mild systemic disease Is this case an emergency?: No
[2022-08-22] MEDS ORDERED: LIDOCAINE-MPF 2% 5 ML VIAL ONE (10:42)
--- NOTE | 2022-08-22 11:17 | ANESTHESIA POST OP EVALUATION ---
Anesthesia Post Eval - Post Anesthesia Eval Vitals: Last Vital Signs Temp 36.2 C L 08/22/22 11:11 Pulse 73 08/22/22 11:11 Resp 16 08/22/22 11:11 BP 95/75 08/22/22 11:11 Pulse Ox 99 08/22/22 11:11 O2 Flow Rate CV Function Including HR & BP: Stable Pain Control: Satisfactory Nausea & Vomiting: Negative Mental Status: Baseline Respiratory Status: Airway Patent Hydration Status: Satisfactory Anesthesia Complications: None
[2022-08-22 11:41] VITALS: BP 114/81
== END 2022-08-22 09:25 | disposition home or self-care (01) ==
LOC: SDS 09:24
PROVIDERS: ATTEND Surgery
PROC: 0DBL8ZZ Excision of Transverse Colon, Via Natural or Artificial Opening Endoscopic (ICD-10-PCS; principal; 2022-08-22 10:45)
DX: Z12.11 Encounter for screening for malignant neoplasm of colon (principal); D12.3 Benign neoplasm of transverse colon; K57.30 Diverticulosis of large intestine without perforation or abscess without bleeding; Z80.0 Family history of malignant neoplasm of digestive organs
CPT/HCPCS: 45380; J7120

== ENCOUNTER 2023-01-10 08:00 | Outpatient (CLI) | payer MEDICARE, OTHER ==
--- NOTE | 2023-01-10 16:16 | XRAY Report ---
PROCEDURE: Wrist 4 View RT INDICATIONS: RIGHT WRIST SPRAIN TECHNIQUE: 3 views of the wrist were acquired. COMPARISON: None. FINDINGS: Bones: On one image, there is a potential minimally displaced fracture involving the base of the fif th metacarpal. Osteophyte formation can be seen within this region. No additional acute fractures are seen. Underlying generalized degenerative changes are seen, which are worst involving the radial aspect of the carpus. Note is made of a hooked osteophyte involving the second metacarpal head. Soft tissues: No suspicious soft tissue calcifications or masses. IMPRESSION: Potential minimally displaced fracture at the base of the fifth metacarpal, although differential ramona gnosis includes artifact from bony degenerative change with osteophytes. If there is focal tenderness (or other strong clinical concern for a fracture that is not seen on thi s plain film study) then please consider a dedicated CT for further evaluation. There is a hooked osteophyte seen involving the second metacarpal head. This is commonly seen in mike ents with hemachromatosis or CPPD deposition disease. Reviewed by: Gareth Guadalupe MD on 01/10/2023 3:15 PM [place] Approved by: Gareth Guadalupe MD on 01/10/2023 3:15 PM [facility] Station ID: [id number]
== END 2023-01-10 23:59 | disposition home or self-care (01) ==
LOC: DI.S 08:00
PROVIDERS: ATTEND Physician Assistant Medical
DX: S63.8X1A Sprain of other part of right wrist and hand, initial encounter (principal); M25.741 Osteophyte, right hand